=== PATIENT | female | born 1965 | race Caucasian/White ===

== ENCOUNTER 2025-05-05 12:31 | Emergency (ER) | payer MEDICAID ==
[~2025-05-05] VITALS: Ht 172.7 cm; Wt 59.4 kg
[2025-05-05 14:22] LABS: PLATELET COUNT (AUTO) 280 K/uL (150-450); RED BLOOD CELL COUNT(AUTO) 4.29 MIL/uL (4.0-5.2); RED CELL DISTRIBUTION WIDTH 13.9 % (11.5-15.0); WHITE BLOOD COUNT (AUTO) 6.8 K/uL (4.3-11.0)
[2025-05-05 14:32] LABS: CALCIUM, SERUM 8.8 mg/dL (8.5-10.1); CREATININE 0.7 mg/dL (0.6-1.3); SODIUM SERUM 140 mmol/L (136-145); UREA NITROGEN, BLOOD 14 mg/dL (7-18)
[2025-05-05 14:42] LABS: ASPARTATE AMINOTRANSFERASE 26 U/L (15-37); NT-PRO BNP 157 pg/mL (0-125); TOTAL PROTEIN, SERUM 7.4 g/dL (6.4-8.2)
[2025-05-05 17:02] VITALS: BP 119/61; TEMP 97.7; O2SAT 99
== END 2025-05-05 17:03 | disposition home or self-care (01) ==
LOC: ER 12:45
DX: R07.89 Other chest pain (principal); R06.02 Shortness of breath; Z88.5 Allergy status to narcotic agent
CPT/HCPCS: 36415; 71045-TC; 80048-TC; 80076-TC; 83880; 84484-TC; 85025-TC; 85378-TC

== ENCOUNTER 2025-06-20 07:30 | Emergency (ER) | payer MEDICAID ==
[~2025-06-20] VITALS: Ht 172.7 cm; Wt 58.1 kg
[2025-06-20 07:40] VITALS: BP 98/64; TEMP 98
[2025-06-20] MEDS ORDERED: AZIT250T13 PO (07:46)
[2025-06-20] MEDS ORDERED: dexAMETHasone 1 MG/ML UDC ONE (07:52)
[2025-06-20] MEDS: dexAMETHasone 1 MG/ML UDC PO ONE (07:54)
[2025-06-20 07:57] VITALS: O2SAT 99
== END 2025-06-20 07:59 | disposition home or self-care (01) ==
LOC: ER 07:39
DX: J02.8 Acute pharyngitis due to other specified organisms (principal); B97.89 Other viral agents as the cause of diseases classified elsewhere; Z88.5 Allergy status to narcotic agent
CPT/HCPCS: 99283; J8540